=== PATIENT | female | born 1990 | race Caucasian/White ===

== ENCOUNTER 2020-05-23 09:28 | Emergency (ER) | payer MEDICAID ==
[~2020-05-23] VITALS: Ht 157.5 cm; Wt 73.0 kg
[2020-05-23 09:30] VITALS: BP 129/77
== END 2020-05-23 10:24 | disposition home or self-care (01) ==
LOC: ER 09:28
DX: U07.1 COVID-19 (principal); Z98.51 Tubal ligation status
CPT/HCPCS: 99281; C9803; U0003

== ENCOUNTER 2021-04-09 21:14 | Emergency (ER) | payer MEDICAID, OTHER ==
[~2021-04-09] VITALS: Ht 157.5 cm; Wt 73.0 kg
[2021-04-09] MEDS ORDERED: LOPE2TAB26 MT (21:42)
[2021-04-09 21:57] VITALS: BP 130/90
== END 2021-04-09 21:58 | disposition home or self-care (01) ==
LOC: ER 21:14
DX: R43.8 Other disturbances of smell and taste (principal); R19.7 Diarrhea, unspecified; Z20.822 Contact with and (suspected) exposure to COVID-19; R09.89 Other specified symptoms and signs involving the circulatory and respiratory systems
CPT/HCPCS: 99283; C9803; U0003; U0005